=== PATIENT | female | born 1930 | race Caucasian/White ===

== ENCOUNTER 2017-03-21 14:19 | Inpatient (IN) | payer OTHER, MEDICARE ==
[~2017-03-21] VITALS: Ht 147.3 cm; Wt 63.8 kg
[2017-03-21 15:58] LABS: BASO % 0.8 %; BASO ABS # 0.05 K/uL (0-0.2); COMPLETE YES; EOS % 1.4 %; HEMATOCRIT 44.1 % (37-47); IG% 0.3 %; LYMPH ABS # 1.84 K/uL (1.2-3.4); MEAN CELL VOLUME 88.4 fL (80-100); MEAN CORPUSCULAR HEMOGLOBIN 29.5 pg (25-34); MEAN CORPUSCULAR HGB CONC 33.3 g/dl (32-36); MONO % 7.4 %; NEUT % 62.1 %; PLATELET COUNT 214 K/uL (130-400); RED BLOOD COUNT 4.99 M/uL (4.2-5.4); WHITE BLOOD COUNT 6.58 K/uL (4.8-10.8)
[2017-03-21 16:11] LABS: PARTIAL THROMBOPLASTIN RATIO 1.1; PROTHROMBIN TIME (PATIENT) 10.7 SECONDS (9.0-12.0)
[2017-03-21] MEDS ORDERED: CLON0.5T3 PO (16:13)
[2017-03-21] MEDS ORDERED: TRAM-10 PO (16:13)
[2017-03-21] MEDS ORDERED: PRLSR20 PO (16:13)
[2017-03-21] MEDS ORDERED: SERT50TA PO (16:13)
[2017-03-21] MEDS ORDERED: LISI-725 PO (16:13)
--- NOTE | 2017-03-21 16:15 | DIAGNOSTIC IMAGING REPORT ---
CT SCAN OF THE BRAIN WITHOUT IV CONTRAST CLINICAL HISTORY: Strokelike symptoms. COMPARISON STUDY: No priors. TECHNIQUE: Unenhanced axial CT scan of the brain is performed from the vertex to the skull base. A dose lowering technique was utilized adhering to the principles of ALARA. CT DOSE: 623.48 mGy.cm FINDINGS: Brain parenchyma: There are age-related involutional changes noting moderate subcortical and periventricular microangiopathic change. There is no hemorrhage, mass effect, or evidence of acute territorial ischemia by CT criteria. Duarte-white matter is preserved. No extra-axial fluid collection is seen. Ventricles, sulci, cisterns: Prominent secondary to involutional change. Intracranial vasculature: There is atherosclerotic calcification of the cavernous carotid and vertebral arteries. Calvarium: Unremarkable. Sinuses and mastoids: The visualized paranasal sinuses are clear. The mastoid air cells are well pneumatized. Orbits: The bony orbits are grossly intact. There are bilateral ocular lens implants. IMPRESSION: There is no hemorrhage, mass effect, or evidence of acute territorial ischemia by CT criteria. Electronically signed by: Alejandro Dejesus M.D. 03/21/2017 4:14 PM Dictated Date/Time: 03/21/2017 4:12 PM
[2017-03-21 16:17] LABS: BLOOD UREA NITROGEN 16 mg/dl (7-18); BUN/CREATININE RATIO 19.6 (10-20); CALCIUM 9.4 mg/dl (8.5-10.1); CARBON DIOXIDE 30 mmol/L (21-32); CHLORIDE 103 mmol/L (98-107); CREATININE 0.83 mg/dl (0.60-1.20); GLUCOSE 98 mg/dl (70-99); POTASSIUM 3.6 mmol/L (3.5-5.1); SODIUM 140 mmol/L (136-145)
[2017-03-21] MEDS ORDERED: ASPIRIN 324 MG CHEW PO STA (16:30)
[2017-03-21] MEDS: SODIUM CHLORIDE 0.9% 1000ML 1,000 ML IV SCH (16:45)
[2017-03-21] MEDS ORDERED: POLYETHYLENE (MIRALAX) 17 GM PACK PO PRN (17:30)
[2017-03-21] MEDS ORDERED: MAGNESIUM HYDROXIDE SUSP 30 ML UDC PO PRN (17:30)
[2017-03-21] MEDS ORDERED: ONDANSETRON INJ 2 MG/ML 2 ML VIAL IV PRN (17:30)
[2017-03-21] MEDS ORDERED: PHARMACIST DISCHARGE MED REC CONSULT PRN (17:30)
[2017-03-21] MEDS ORDERED: ALUMINUM/MAGNESIUM/SIMETH (MAALOX MAX) 30 ML UDC PO PRN (17:30)
[2017-03-21] MEDS ORDERED: ACETAMINOPHEN 325 MG TAB PO PRN (17:30)
[2017-03-21] MEDS ORDERED: CLONAZEPAM 0.5 MG TAB PO PRN (17:45)
[2017-03-21] MEDS ORDERED: TRAMADOL HCL 50 MG TAB PO PRN (17:45)
[2017-03-21] MEDS ORDERED: OPTIRAY 320 IV PRN (17:45)
--- NOTE | 2017-03-21 18:09 | History and Physical ---
History & Physical Date & Time of Service: Mar 21, 2017 at 17:47 Chief Complaint: Retinal Ocelation Primary Care Physician: Patricia Kam D.O. History of Present Illness Source: patient, family (son, Grupo) This is a pleasant 87 year old female with a past history of HTN, HLD, Depression/Anxiety, GERD and OA, who presents with sudden onset visual loss. She notes that 2 days ago, she was sitting in the chair watching TV, when suddenly she lost vision in her right year. The vision loss was confined to the inner middle half of her visual field in the right. She denies any associated headache, dysphasia, asphasia, dysphagia, tinnitus, hearing loss, vertigo, dizziness, peripheral weakness or paresthesia or balances issues. She notes that there was no pain to the eye, nor difficulty with eye movements. Did did not have any tenderness to the temples or jaw claudication. She also denies any flashes or floaters or light. She notes that 2 days prior to that, she was driving and noticed sudden onset double vision. She cannot state which eye it was in because it went away within a few seconds. She denies any chest pain, palpitation, SOB, coughing or wheezing. She has no lower extremity edema. She has been doing well with regards to intake and appetite. She denies any voiding issues. She denies fevers, chills, sweats. She has no prior history of stroke or coronary artery disease. She was able to go see the forensic photographer this morning in [place]. They had noted to her a concern for central retinal artery occlusion and recommending going to the ER for further evaluation. In the ER, vitals were normal and labs were all within normal limits. A non-contrast CT was negative. Past Medical/Surgical History HTN HLD Osteoarthritis GERD Axiety Depression Surgery - Cholecystectomy - Bilateral Knee Arthroplasty - Hernia repair - Bilateral cataract repair - Right ankle fracture with metal plating - Colon Ca with colectomy 5 years ago Social History Smoking Status: Never Smoker Smokeless Tobacco Use: No Alcohol Use: occasionally Drug Use: none Marital Status: Housing status: lives with family (son) Occupational Status: retired Allergies Coded Allergies: No Known Allergies (Unverified , 03/21/17) Home Medications Scheduled Lisinopril (Zestril), 20 MG PO DAILY Omeprazole (Prilosec), 20 MG PO BID Sertraline (Zoloft), 50 MG PO DAILY Scheduled PRN Clonazepam (Klonopin), 0.5 MG PO DAILY PRN for Anxiety Tramadol (Ultram), 50 MG PO Q6H PRN for Pain Review of Systems Constitutional: No fever, No chills, No sweats Eyes: No worsening of vision, No eye pain, No redness, No discharge, No diplopia ENT: No hearing loss, No unusual epistaxis, No nasal symptoms, No sore throat, No tinnitus Respiratory: No cough, No wheezing, No shortness of breath Cardiovascular: No chest pain, No orthopnea, No palpitations Abdomen: No pain, No nausea, No vomiting Musculoskeletal: No joint pain, No muscle pain, No swelling Genitourinary - Female: No dysuria, No urinary frequency Neurologic: No memory loss, No paralysis, No weakness, No numbness/tingling, No vertigo Psychiatric: No depression symptoms, No anxiety Endocrine: No fatigue Hematologic / Lymphatic: No clotting problems, No swollen lymph nodes, No night sweats Integumentary: No rash, No itch, No new/changing skin lesions Physical Exam Vital Signs Date Time Temp Pulse Resp B/P (MAP) Pulse Ox O2 Delivery O2 Flow Rate FiO2 03/21/17 16:57 78 18 155/106 98 Room Air 03/21/17 15:40 85 03/21/17 15:34 98 Room Air 03/21/17 14:22 36.8 88 18 149/81 97 Room Air General Appearance: WD/WN, no apparent distress Head: normocephalic, atraumatic Eyes: normal inspection, EOMI, + pertinent finding (visual field testing reveals deficit temporal retina of right eye (unable to see objects in left visual field with right eye)) ENT: normal ENT inspection, hearing grossly normal, pharynx normal Neck: supple, no adenopathy, no JVD Respiratory/Chest: lungs clear, no respiratory distress Cardiovascular: regular rate, rhythm, no gallop, no murmur Abdomen/GI: normal bowel sounds, non tender, soft Back: normal inspection, no CVA tenderness Extremities/Musculoskelatal: no calf tenderness, no pedal edema Neurologic/Psych: operations research scientist II-XII nml as tested, no motor/sensory deficits, alert, normal mood/affect, oriented x 3 Skin: normal color, warm/dry, no rash Lymphatic: no adenopathy Diagnostics Laboratory Results Results Past 24 Hours Test 03/21/17 15:45 Range/Units White Blood Count 6.58 4.8-10.8 K/uL Red Blood Count 4.99 4.2-5.4 M/uL Hemoglobin 14.7 12.0-16.0 g/dL Hematocrit 44.1 37-47 % Mean Corpuscular Volume 88.4 80-100 fL Mean Corpuscular Hemoglobin 29.5 25-34 pg Mean Corpuscular Hemoglobin Concent 33.3 32-36 g/dl Platelet Count 214 130-400 K/uL Mean Platelet Volume 10.0 7.4-10.4 fL Neutrophils (%) (Auto) 62.1 % Lymphocytes (%) (Auto) 28.0 % Monocytes (%) (Auto) 7.4 % Eosinophils (%) (Auto) 1.4 % Basophils (%) (Auto) 0.8 % Neutrophils # (Auto) 4.09 1.4-6.5 K/uL Lymphocytes # (Auto) 1.84 1.2-3.4 K/uL Monocytes # (Auto) 0.49 0.11-0.59 K/uL Eosinophils # (Auto) 0.09 0-0.5 K/uL Basophils # (Auto) 0.05 0-0.2 K/uL RDW Standard Deviation 44.2 36.4-46.3 fL RDW Coefficient of Variation 13.6 11.5-14.5 % Immature Granulocyte % (Auto) 0.3 % Immature Granulocyte # (Auto) 0.02 0.00-0.02 K/uL Prothrombin Time 10.7 9.0-12.0 SECONDS Prothromb Time International Ratio 1.0 0.9-1.1 Activated Partial Thromboplast Time 27.3 21.0-31.0 SECONDS Partial Thromboplastin Ratio 1.1 Sodium Level 140 136-145 mmol/L Potassium Level 3.6 3.5-5.1 mmol/L Chloride Level 103 98-107 mmol/L Carbon Dioxide Level 30 21-32 mmol/L Anion Gap 7.0 3-11 mmol/L Blood Urea Nitrogen 16 7-18 mg/dl Creatinine 0.83 0.60-1.20 mg/dl Est Creatinine Clear Calc Drug Dose 38.7 ml/min Estimated GFR () 74.0 Estimated GFR (Non- 63.9 BUN/Creatinine Ratio 19.6 10-20 Random Glucose 98 70-99 mg/dl Calcium Level 9.4 8.5-10.1 mg/dl Troponin I < 0.015 0-0.045 ng/ml Diagnostic Radiology CT SCAN OF THE BRAIN WITHOUT IV CONTRAST CLINICAL HISTORY: Strokelike symptoms. COMPARISON STUDY: No priors. TECHNIQUE: Unenhanced axial CT scan of the brain is performed from the vertex to the skull base. A dose lowering technique was utilized adhering to the principles of ALARA. CT DOSE: 623.48 mGy.cm FINDINGS: Brain parenchyma: There are age-related involutional changes noting moderate subcortical and periventricular microangiopathic change. There is no hemorrhage, mass effect, or evidence of acute territorial ischemia by CT criteria. Duarte-white matter is preserved. No extra-axial fluid collection is seen. Ventricles, sulci, cisterns: Prominent secondary to involutional change. Intracranial vasculature: There is atherosclerotic calcification of the cavernous carotid and vertebral arteries. Calvarium: Unremarkable. Sinuses and mastoids: The visualized paranasal sinuses are clear. The mastoid air cells are well pneumatized. Orbits: The bony orbits are grossly intact. There are bilateral ocular lens implants. IMPRESSION: There is no hemorrhage, mass effect, or evidence of acute territorial ischemia by CT criteria. Electronically signed by: Alejandro Dejesus M.D. 03/21/2017 4:14 PM Dictated Date/Time: 03/21/2017 4:12 PM EKG NSR Normal EKG Impression Assessment and Plan 87 year old female with sudden onset right hemianopia in the temporal retina. Per evaluation from forensic photographer this morning, they noted right central retinal artery occlusion Otherwise, neurological examination is completely normal. She does have other risk factors for ischemic vessel disease including HTN and HLD. 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 - Clinical exam does not heighten concern for inflammatory process (ex: GCA), therefore, will hold off on checking any inflammatory markers - CT brain negative - MRI contra-indicated due to metal plating in ankle - Will pursue additional CVA work-up Carotid ultrasound Echocardiogram; telemetry monitoring for arrhythmia MRA Head and Neck - Risk factor screening: Check HbA1c; will hold on lipid panel as clinical presentation dictates treatment with high-intensity statin regimen regardless of lipids - Consult Neurology - Consult Ophthalmology - Start ASA 81 mg daily - Statin increased to high-intensity regimen, Atorvastatin 40 mg Hypertension - Continue Lisinopril Hyperlipidemia - Increase intensity to Atorvastatin 40 mg Anxiety/Depression - Continue Fluoxetine - Continue Clonazepam DVT Prophylaxis - SCD Knee, TARA Hose - Lovenox 40 mg s.c. daily Code Status - Level I Full Code Disposition - Telemetry - OT and PT evaluations I agree with resident assessment and plan and have seen and examined pt myself Pt admitted with right visual loss (hemianopsia) and suspected to have central retinal artery occlusion for forensic photographer Will consult neuro at this time in addition to opthalmology No other neuro deficits on exam Cont CVA workup including CTA head/neck and ECHO Cont on ASA at this time Pt reports mild improvement in right vision almanza Level of Care Telemetry Resuscitation Status FULL RESUSCITATION VTE Prophylaxis VTE Risk Assessment Done? Y/N: Yes Risk Level: Moderate Given or contraindicated: Enoxaparin (Lovenox)SQ
--- NOTE | 2017-03-21 18:36 | DIAGNOSTIC IMAGING REPORT ---
CT ANGIOGRAM OF THE BRAIN; CT ANGIOGRAM OF THE NECK CLINICAL HISTORY: Strokelike symptoms. Retinal occlusion. COMPARISON STUDY: Unenhanced CT of the brain dated 03/21/2017. TECHNIQUE: Following the IV administration of 120 of Optiray 320, CT angiogram of the head and neck was performed from the aortic arch to the vertex. Images are reviewed in the axial, sagittal, and coronal planes. 3-D MIPS images are created and assessed. IV contrast was administered without complication. All measurements were calculated based on NASCET criteria. A dose lowering technique was utilized adhering to the principles of ALARA. CT DOSE: 420.43 mGy.cm FINDINGS: Brain parenchyma: There are age-related involutional changes noting mild to moderate patchy subcortical and periventricular microangiopathic disease. There is no hemorrhage, mass effect, or evidence of acute territorial ischemia by CT criteria. There is no evidence of enhancing mass lesion on these angiographic phase images. The ventricles, sulci, and cisterns are prominent secondary to involutional change. Duarte-white matter differentiation is preserved. No extra-axial fluid collection is seen. Thoracic aorta: There is atherosclerotic calcification of the thoracic aorta. Visualized portions of the thoracic aorta are normal in caliber. The aortic arch demonstrates standard 3-vessel anatomy. Right carotid arterial system: The right common carotid artery is widely patent. There is advanced atherosclerotic calcification of the carotid bulb. This causes at least 50-75% stenosis at the origin of the right internal carotid artery. The remainder of the right internal carotid artery is widely patent, as is the right external carotid artery. Left carotid arterial system: The left common carotid artery is widely patent, as are the left internal and external carotid arteries. There is evidence carotid calcification of the carotid bulb which causes less than 25% luminal narrowing. Vertebral arteries: Widely patent bilaterally. The right vertebral artery is dominant. Subclavian arteries: Widely patent bilaterally. Intracranial vasculature: There is atherosclerotic calcification of the cavernous carotid and vertebral arteries. The internal carotid arteries are patent at the skull base, as are the anterior and middle cerebral arteries bilaterally. The vertebrobasilar system and posterior cerebral arteries are widely patent. The right vertebral artery is dominant. There is no aneurysm, high-grade stenosis, or focal vessel cut off seen throughout the intracranial circulation. Jugular veins: Widely patent bilaterally. Dural sinuses: Patent. Lung apices: Partially visualized upper lobe lung parenchyma appears clear. Soft tissues: The visualized pharyngeal soft tissues are normal in appearance noting angiographic phase technique. The oropharyngeal airway appears widely patent. The salivary and thyroid glands are normal in appearance. No cervical lymphadenopathy is seen. Skeletal structures: The skeletal structures are osteopenic. The calvarium appears intact. Multilevel cervical spondylosis is observed. Sinuses and mastoids: The paranasal sinuses are clear. The mastoid air cells are well pneumatized. Orbits: The bony orbits are intact. There are bilateral ocular lens implants. IMPRESSION: 1. There is no evidence of hemorrhage, mass effect, or acute territorial ischemia by CT criteria. 2. Unremarkable CT angiogram of the brain. 3. There is advanced and complex atherosclerotic plaque seen in the right carotid bulb. This causes 50-75% stenosis at the origin of the right internal carotid artery. 4. The remainder of the right internal carotid artery is widely patent. 5. No hemodynamically significant stenosis is seen in the left carotid arterial system. Electronically signed by: Alejandro Dejesus M.D. 03/21/2017 6:34 PM Dictated Date/Time: 03/21/2017 6:19 PM
--- NOTE | 2017-03-21 19:25 | DIAGNOSTIC IMAGING REPORT ---
ULTRASOUND OF THE CAROTID ARTERIES CLINICAL HISTORY: Carotid artery atherosclerosis. COMPARISON STUDY: CT angiogram of the neck performed the same day 03/21/2017. TECHNIQUE: Real-time, grayscale, and color Doppler sonography of the carotid arteries is performed. Images are reviewed in the transverse and longitudinal planes. FINDINGS: Blood pressure in the right arm measures 158/81 and blood pressure in the left arm measures 163/83. The carotid arteries are patent bilaterally and demonstrate antegrade flow. There is [id number] atherosclerotic plaque seen in the carotid bulbs, right greater than left. Normal doppler arterial waveforms are seen throughout. Velocity measurements are listed below. Common carotid peak systolic velocity (cm/sec): RIGHT: 64 LEFT: 59 ICA proximal peak systolic velocity (cm/sec): RIGHT: 46 LEFT: 61 ICA mid peak systolic velocity (cm/sec): RIGHT: 45 LEFT: 56 ICA distal peak systolic velocity (cm/sec): RIGHT: 59 LEFT: 50 ICA/CC peak systolic ratio: RIGHT: 0.9 LEFT: 1.0 Antegrade flow was shown in the vertebral arteries. The external carotid arteries are patent. IMPRESSION: 1. There is no sonographic evidence of hemodynamically significant stenosis in the right or left carotid arterial system by velocity criteria. 2. Antegrade flow is shown in the vertebral arteries. Electronically signed by: Alejandro Dejesus M.D. 03/21/2017 7:23 PM Dictated Date/Time: 03/21/2017 7:21 PM
--- NOTE | 2017-03-21 19:35 | EMERGENCY ROOM VISIT NOTE ---
History Report prepared by Ekta: Rishi Aranda Under the Supervision of: Dr. Kishor Busby M.D. First contact with patient: 14:42 Chief Complaint: EYE ASSESSMENT Stated Complaint: RETINAL OCELATION History of Present Illness The patient is a 87 year old female who presents to the Emergency Room with complaints of trouble with her vision in her right eye that began two nights ago. At this time, the patient was sitting watching television. Suddenly, she began to see "spots" in her vision. She tested her right eye by placing her hand over her left eye and noticed that she can only distinguish light. She cannot see anything else out of her right eye. She is not having any trouble with her left eye. Today, she saw an Supervisor Garage named Dr. Dozier at [facility] in [place]. 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 They referred her to her PCP and scheduled her for an appointment with an Door Patcher. She then saw a Physician Top Coater in her PCP's office who discussed her case with a Physician. They referred her to the ER for further management. She is experiencing trouble walking because of her lack of vision in her right eye but otherwise denies ataxia. She denies any headaches, feelings of being off balance, numbness, or weakness. She denies any history of strokes, diabetes, or heart disease. She is not on any blood thinners or Aspirin. She has a past history of hypertension. Source of History: patient Onset: two nights ago Position: eye (right) Symptom Intensity: moderate Quality: other (Vision trouble) Timing: constant Associated Symptoms: No headache, No weakness, No numbness Note: She is having trouble walking. She denies any feelings of being off balance. Review of Systems See HPI for pertinent positives & negatives. A total of 10 systems reviewed and were otherwise negative. Past Medical & Surgical Medical Problems: (1) Hemianopia of right eye (2) HTN (hypertension) Family History Omitted secondary to the patient's age. Social History Smoking Status: Never Smoker Smokeless Tobacco Use: No Drug Use: none Occupation Status: retired Current/Historical Medications Scheduled Lisinopril (Zestril), 20 MG PO DAILY Omeprazole (Prilosec), 20 MG PO BID Sertraline (Zoloft), 50 MG PO DAILY Scheduled PRN Clonazepam (Klonopin), 0.5 MG PO DAILY PRN for Anxiety Tramadol (Ultram), 50 MG PO Q6H PRN for Pain Allergies Coded Allergies: No Known Allergies (Unverified , 03/21/17) Physical Exam Vital Signs Date Time Temp Pulse Resp B/P (MAP) Pulse Ox O2 Delivery O2 Flow Rate FiO2 03/21/17 19:01 79 18 148/94 98 03/21/17 16:57 78 18 155/106 98 Room Air 03/21/17 15:40 85 03/21/17 15:34 98 Room Air 03/21/17 14:22 36.8 88 18 149/81 97 Room Air Physical Exam Constitutional: Vital signs reviewed. Eyes: Pupils are both dilated. Conjunctiva are noninjected. ENT: Pharynx is clear without erythema or exudate. Mucous membranes are moist. Neck supple without meningeal signs. Respiratory: Clear to auscultation bilaterally. Breath sounds are equal bilaterally. Cardiovascular: Regular rate and rhythm. No rubs or gallops. GI: Soft, nondistended and nontender. Bowel sounds are present. Musculoskeletal: No peripheral edema. No lower extremity tenderness. Integumentary: No cyanosis. Neurological: The patient is awake and alert. Cranial nerves III-XII are intact. Only detection of light in the right eye. Motor is 5 out of 5 all extremities. Sensation is intact to light touch all extremities. Normal speech. Normal gait. No pronator drift. Psychiatric: Normal affect. Medical Decision & Procedures ER Provider Diagnostic Interpretation: Radiology results as stated below per my review and the radiologist's interpretation: CT SCAN OF THE BRAIN WITHOUT IV CONTRAST CLINICAL HISTORY: Strokelike symptoms. COMPARISON STUDY: No priors. TECHNIQUE: Unenhanced axial CT scan of the brain is performed from the vertex to the skull base. A dose lowering technique was utilized adhering to the principles of ALARA. CT DOSE: 623.48 mGy.cm FINDINGS: Brain parenchyma: There are age-related involutional changes noting moderate subcortical and periventricular microangiopathic change. There is no hemorrhage, mass effect, or evidence of acute territorial ischemia by CT criteria. Duarte-white matter is preserved. No extra-axial fluid collection is seen. Ventricles, sulci, cisterns: Prominent secondary to involutional change. Intracranial vasculature: There is atherosclerotic calcification of the cavernous carotid and vertebral arteries. Calvarium: Unremarkable. Sinuses and mastoids: The visualized paranasal sinuses are clear. The mastoid air cells are well pneumatized. Orbits: The bony orbits are grossly intact. There are bilateral ocular lens implants. IMPRESSION: There is no hemorrhage, mass effect, or evidence of acute territorial ischemia by CT criteria. Electronically signed by: Alejandro Dejesus M.D. 03/21/2017 4:14 PM Dictated Date/Time: 03/21/2017 4:12 PM Laboratory Results 03/21/17 15:45 Red Blood Count 4.99, Mean Corpuscular Volume 88.4, Mean Corpuscular Hemoglobin 29.5, Mean Corpuscular Hemoglobin Concent 33.3, Mean Platelet Volume 10.0, Neutrophils (%) (Auto) 62.1, Lymphocytes (%) (Auto) 28.0, Monocytes (%) (Auto) 7.4, Eosinophils (%) (Auto) 1.4, Basophils (%) (Auto) 0.8, Neutrophils # (Auto) 4.09, Lymphocytes # (Auto) 1.84, Monocytes # (Auto) 0.49, Eosinophils # (Auto) 0.09, Basophils # (Auto) 0.05 03/21/17 15:45 Test 03/21/17 15:45 White Blood Count 6.58 K/uL (4.8-10.8) Red Blood Count 4.99 M/uL (4.2-5.4) Hemoglobin 14.7 g/dL (12.0-16.0) Hematocrit 44.1 % (37-47) Mean Corpuscular Volume 88.4 fL (80-100) Mean Corpuscular Hemoglobin 29.5 pg (25-34) Mean Corpuscular Hemoglobin Concent 33.3 g/dl (32-36) Platelet Count 214 K/uL (130-400) Mean Platelet Volume 10.0 fL (7.4-10.4) Neutrophils (%) (Auto) 62.1 % Lymphocytes (%) (Auto) 28.0 % Monocytes (%) (Auto) 7.4 % Eosinophils (%) (Auto) 1.4 % Basophils (%) (Auto) 0.8 % Neutrophils # (Auto) 4.09 K/uL (1.4-6.5) Lymphocytes # (Auto) 1.84 K/uL (1.2-3.4) Monocytes # (Auto) 0.49 K/uL (0.11-0.59) Eosinophils # (Auto) 0.09 K/uL (0-0.5) Basophils # (Auto) 0.05 K/uL (0-0.2) RDW Standard Deviation 44.2 fL (36.4-46.3) RDW Coefficient of Variation 13.6 % (11.5-14.5) Immature Granulocyte % (Auto) 0.3 % Immature Granulocyte # (Auto) 0.02 K/uL (0.00-0.02) Prothrombin Time 10.7 SECONDS (9.0-12.0) Prothromb Time International Ratio 1.0 (0.9-1.1) Activated Partial Thromboplast Time 27.3 SECONDS (21.0-31.0) Partial Thromboplastin Ratio 1.1 Anion Gap 7.0 mmol/L (3-11) Est Creatinine Clear Calc Drug Dose 38.7 ml/min Estimated GFR () 74.0 Estimated GFR (Non- 63.9 BUN/Creatinine Ratio 19.6 (10-20) Calcium Level 9.4 mg/dl (8.5-10.1) Troponin I < 0.015 ng/ml (0-0.045) Laboratory results as reviewed by me. Medications Administered Medications (Trade) Dose Ordered Sig/Faviola Route Start Time Stop Time Status Last Admin Dose Admin Sodium Chloride 1,000 ml @ 50 mls/hr Q20H IV 03/21/17 15:10 04/20/17 15:09 03/21/17 16:45 50 MLS/HR Aspirin (Aspirin Chew) 324 mg NOW STAT PO 03/21/17 16:30 03/21/17 16:31 DC 03/21/17 16:45 324 MG ECG Indication: other (Stroke Symptoms) Rate (beats per minute): 84 Rhythm: normal sinus Findings: no acute ischemic change, no ectopy ED Course 1442: The patient was evaluated in room C12B. A complete history and physical exam was performed. 1510: Ordered Sodium Chloride 1000 ml @ 50 mls/hr IV 1522: I informed the patient was her diagnoses at her [employer] was. I also discussed with her the plan for treatment. Her son is now at bedside. 1629: I discussed the patient's test results with her and her son. She will be evaluated further by a Hospitalist. 163: Ordered Aspirin 324 mg PO 163: I spoke [place]. Armijo [facility] [place]. We discussed the patient's case. He will be evaluating the patient for further management and care. Medical Decision This is an 87-year-old female who presents with central retinal artery occlusion. I did perform a limited focused review of portions of the patient's old chart on the electronic medical record. The patient has had no prior visits to this hospital. I did evaluate the patient as noted above. The patient is presenting with a central retinal artery occlusion diagnosed by the [facility]. I did call the clinic and they confirmed that their physician diagnosed her with central retinal artery occlusion. She was sent here for further workup by her PCP. She has no other neurologic symptoms. She has loss of vision in the right eye and is only able to distinguish light. IV access was established. The patient was placed on a continuous cardiac care nurse. I did order and personally review the patient's 12-lead EKG as described above. I did order and review the patient's blood work as noted in the electronic medical record. I did order a CT of the brain. I did review the images myself as well as the radiology report as described above. There is no evidence of acute intracranial abnormality. I did discuss the test results with the patient. She will be hospitalized for further CVA workup. I did discuss the case with the hospitalist and complex case manager. Medication Reconcilliation Current Medication List: was personally reviewed by me Blood Pressure Screening Patient's blood pressure: Elevated blood pressure Blood pressure disposition: Referred to PCP Consults Time Called: 1628 Consulting Physician: Dr. Patel - [facility] Returned Call: [address] Patel of [facility]. We discussed the patient and her results. The patient will be further evaluated by him. Impression Primary Impression: Central retinal artery occlusion Scribe Attestation The scribe's documentation has been prepared under my direct and personally reviewed by me in its entirety. I confirm that the note above accurately reflects all work, treatment, procedures, and medical decision making performed by me. Departure Information Dispostion Being Evaluated By Hospitalist Patient Instructions My [facility] Problem Qualifiers Primary Impression: Central retinal artery occlusion Laterality: right Qualified Codes: H34.11 - Central retinal artery occlusion , right eye
[2017-03-21 20:00] VITALS: BP 193/95; PULSE 87; TEMP 36.7; O2SAT 95; Ht 147.3 cm; Wt 63.8 kg
[2017-03-21] MEDS: PANTOprazole SOD 40 MG TAB PO SCH (20:31)
[2017-03-21] MEDS: LISINOPRIL 20 MG TAB PO SCH (20:32)
[2017-03-21] MEDS: SERTRALINE HCL 50 MG TAB PO SCH (20:32)
[2017-03-21] MEDS ORDERED: ENOXAPARIN 40 MG/0.4 ML SYR SC SCH (21:00)
[2017-03-21 21:54] VITALS: BP 134/85
[2017-03-21 23:06] VITALS: BP 107/60; PULSE 76; TEMP 36.7; O2SAT 94
[2017-03-22 03:34] VITALS: BP 110/72; PULSE 72; TEMP 36.6; O2SAT 94
[2017-03-22 06:01] LABS: BASO % 0.6 %; BASO ABS # 0.04 K/uL (0-0.2); COMPLETE YES; EOS % 2.6 %; HEMATOCRIT 41.3 % (37-47); LYMPH % 31.3 %; LYMPH ABS # 2.02 K/uL (1.2-3.4); MEAN CELL VOLUME 89.6 fL (80-100); MEAN CORPUSCULAR HEMOGLOBIN 29.7 pg (25-34); MEAN CORPUSCULAR HGB CONC 33.2 g/dl (32-36); MEAN PLATELET VOLUME 9.8 fL (7.4-10.4); MONO % 8.2 %; NEUT % 57.3 %; PLATELET COUNT 209 K/uL (130-400); RED BLOOD COUNT 4.61 M/uL (4.2-5.4); WHITE BLOOD COUNT 6.46 K/uL (4.8-10.8)
[2017-03-22 06:08] LABS: ESTIMATED AVERAGE GLUCOSE 120 mg/dl; HA1C FLAG Normal (Normal)
[2017-03-22 06:31] LABS: BUN/CREATININE RATIO 25.7 (10-20); CALCIUM 8.9 mg/dl (8.5-10.1); CREATININE 0.77 mg/dl (0.60-1.20); POTASSIUM 3.6 mmol/L (3.5-5.1)
[2017-03-22 06:34] LABS: CHOLESTEROL/HDL RATIO 5.2
[2017-03-22 07:53] VITALS: BP 130/83; PULSE 74; TEMP 36.6; O2SAT 95
[2017-03-22] MEDS: PANTOprazole SOD 40 MG TAB PO SCH (08:17)
[2017-03-22] MEDS: SERTRALINE HCL 50 MG TAB PO SCH (08:17)
[2017-03-22] MEDS: LISINOPRIL 20 MG TAB PO SCH (08:17)
[2017-03-22] MEDS ORDERED: ASPIRIN 81 MG ECTAB PO SCH (09:00)
[2017-03-22] MEDS ORDERED: ATORVASTATIN 40 MG TAB PO SCH (09:00)
--- NOTE | 2017-03-22 10:06 | Neurology Consultation ---
Neurology Consultation Date of Consultation: Mar 22, 2017. Attending Physician: Dung Patel D.O. Primary Care Physician: Patricia Kam D.O. Reason for Consultation: Consultation for acute visual loss History of Present Illness Source: patient, hospital records This is a 87-year-old right-handed female who presents with acute right eye visual loss. Occurred approximately 3 nights ago. It occurred suddenly while watching TV. Denies any pain in association. She reports that she can still see a little bit out of her nasal region of her right eye. Left eye vision is completely intact. She denies any headaches. Denies any numbness or weakness. Denies any changes with her gait or walking. Denies any changes with her speech or swallowing. Denies any changes with her cognition or memory. She has never had any TIA or strokelike events in the past. Denies any chest pain, heart palpitations, shortness of breath. She did present to her pet groomer who noted right central artery occlusion and patient was eventually sent to the emergency room for further evaluation. CTA of the head and neck were reviewed by myself and noted to have a 50-75% stenosis of the right ICA. Ultrasound of the carotids were unremarkable. Echocardiogram results are pending Total cholesterol 199, LDL 132, HDL 38, triglycerides 145, hemoglobin A1c 5.8 Patient reports that she was on a statin medication at the time of the event but denies any antiplatelets or blood thinners. Past Medical/Surgical History Medical Problems: (1) Central retinal artery occlusion Status: Acute Hypertension, dyslipidemia, depression/anxiety Patient has had a screw placed in her toe about 5 years ago. Had a plate placed in her ankle for repair fracture approximately 2 years ago. Bilateral knee replacements Family History Family history significant for mother with DE in her 70s and to also had Parkinson's. Father with diabetes Social History Patient is normally independent in her activities of daily living. Rare alcohol use. No tobacco use. Smokeless Tobacco Use: No Alcohol Use: occasionally Drug Use: none Marital Status: Occupation Status: retired Allergies Coded Allergies: No Known Allergies (Unverified , 03/21/17) Current Inpatient Medications Current Inpatient Medications Medications (Trade) Dose Ordered Sig/Faviola Route Start Time Stop Time Status Last Admin Dose Admin Sodium Chloride 1,000 ml @ 50 mls/hr Q20H IV 03/21/17 15:10 04/20/17 15:09 03/21/17 16:45 50 MLS/HR Enoxaparin Sodium (Lovenox Inj) 40 mg Q24H SC 03/21/17 21:00 04/20/17 20:59 03/21/17 21:05 40 MG Acetaminophen (Tylenol Tab) 650 mg Q4H PRN PO 03/21/17 17:30 04/20/17 17:29 Al Hydrox/Mg Hydrox/Simethicone (Maalox Max Susp) 15 ml Q4H PRN PO 03/21/17 17:30 04/20/17 17:29 Magnesium Hydroxide (Milk Of Magnesia Susp) 30 ml Q12H PRN PO 03/21/17 17:30 04/20/17 17:29 Ondansetron HCl (Zofran Inj) 4 mg Q6H PRN IV 03/21/17 17:30 04/20/17 17:29 Polyethylene (Miralax Powder Packet) 17 gm DAILY PRN PO 03/21/17 17:30 04/20/17 17:29 Atorvastatin Calcium (Lipitor Tab) 40 mg QAM PO 03/22/17 09:00 04/21/17 08:59 03/22/17 08:17 40 MG Aspirin (Ecotrin Tab) 81 mg QAM PO 03/22/17 09:00 04/21/17 08:59 03/22/17 08:18 81 MG Miscellaneous Information (Pharmacist Discharge Med Rec Consult) 1 ea UD PRN N/A 03/21/17 17:30 04/20/17 17:29 Clonazepam (Klonopin Tab) 0.5 mg DAILY PRN PO 03/21/17 17:45 04/20/17 17:44 Lisinopril (Zestril Tab) 20 mg DAILY PO 03/22/17 09:00 04/21/17 08:59 03/22/17 08:17 20 MG Sertraline HCl (Zoloft Tab) 50 mg DAILY PO 03/22/17 09:00 04/21/17 08:59 03/22/17 08:17 50 MG Tramadol HCl (Ultram Tab) 50 mg Q6H PRN PO 03/21/17 17:45 04/20/17 17:44 Pantoprazole Sodium (Protonix Tab) 40 mg BID PO 03/21/17 21:00 04/20/17 20:59 03/22/17 08:17 40 MG Ioversol (Optiray 320) 100 ml UD PRN IV 03/21/17 17:45 03/25/17 17:44 Review of Systems Complete review systems otherwise negative except for the above noted in history of present illness Physical Exam Vital Signs (Past 24 Hrs): Date Time Temp Pulse Resp B/P (MAP) Pulse Ox O2 Delivery O2 Flow Rate FiO2 03/22/17 08:00 Room Air 03/22/17 07:53 36.6 74 17 130/83 (99) 95 03/22/17 04:00 Room Air 03/22/17 03:34 36.6 72 18 110/72 (85) 94 Room Air 03/22/17 00:00 Room Air 03/21/17 23:06 36.7 76 18 107/60 (76) 94 Room Air 03/21/17 21:54 134/85 (101) 03/21/17 20:00 36.7 87 20 193/95 95 Room Air 03/21/17 19:01 79 18 148/94 98 03/21/17 16:57 78 18 155/106 98 Room Air 03/21/17 15:40 85 03/21/17 15:34 98 Room Air 03/21/17 14:22 36.8 88 18 149/81 97 Room Air Gen.: Patient is alert and sitting in bed, in no acute distress. HEENT: Normocephalic /atraumatic, no scleral icterus Heart: Regular rate and rhythm Extremities: No gross deformities or rashes noted Neurological examination: Mental status: Patient is alert and oriented x3. Attention and concentration normal for the situation. Good fund of knowledge. Able to give her own history. Speech is fluent without any dysarthria or aphasia noted Cranial nerve: Visual almanza intact in the left eye. Severely impaired visual almanza in the right eye with the exception the most nasal portion of her vision. Funduscopic examination was not well visualized. No papilledema. Pupils equally round and reactive to light. Extraocular muscles intact without nystagmus. No facial asymmetry noted. Facial sensation intact. Tongue is midline. Good palatal elevation. Good shoulder shrug bilaterally. Hearing grossly intact to voice. Strength: 5/5 both proximal and distally in all extremities. There is no arm drift. Tone is normal. Sensation: Grossly intact to light touch in all extremities. Deep tendon reflexes: +1 in bilateral biceps, brachioradialis and patellar. Coordination: Patient had good finger to nose without dysmetria Station within the bed was normal Laboratory Results Past 24 Hours: 03/22/17 05:42 Red Blood Count 4.61, Mean Corpuscular Volume 89.6, Mean Corpuscular Hemoglobin 29.7, Mean Corpuscular Hemoglobin Concent 33.2, Mean Platelet Volume 9.8, Neutrophils (%) (Auto) 57.3, Lymphocytes (%) (Auto) 31.3, Monocytes (%) (Auto) 8.2, Eosinophils (%) (Auto) 2.6, Basophils (%) (Auto) 0.6, Neutrophils # (Auto) 3.70, Lymphocytes # (Auto) 2.02, Monocytes # (Auto) 0.53, Eosinophils # (Auto) 0.17, Basophils # (Auto) 0.04 03/22/17 05:42 Test 03/21/17 15:45 03/22/17 05:42 Prothrombin Time 10.7 SECONDS (9.0-12.0) Prothromb Time International Ratio 1.0 (0.9-1.1) Activated Partial Thromboplast Time 27.3 SECONDS (21.0-31.0) Partial Thromboplastin Ratio 1.1 Estimated Average Glucose 120 mg/dl Hemoglobin A1c 5.8 % (4.5-5.6) Troponin I < 0.015 ng/ml (0-0.045) White Blood Count 6.46 K/uL (4.8-10.8) Red Blood Count 4.61 M/uL (4.2-5.4) Hemoglobin 13.7 g/dL (12.0-16.0) Hematocrit 41.3 % (37-47) Mean Corpuscular Volume 89.6 fL (80-100) Mean Corpuscular Hemoglobin 29.7 pg (25-34) Mean Corpuscular Hemoglobin Concent 33.2 g/dl (32-36) Platelet Count 209 K/uL (130-400) Mean Platelet Volume 9.8 fL (7.4-10.4) Neutrophils (%) (Auto) 57.3 % Lymphocytes (%) (Auto) 31.3 % Monocytes (%) (Auto) 8.2 % Eosinophils (%) (Auto) 2.6 % Basophils (%) (Auto) 0.6 % Neutrophils # (Auto) 3.70 K/uL (1.4-6.5) Lymphocytes # (Auto) 2.02 K/uL (1.2-3.4) Monocytes # (Auto) 0.53 K/uL (0.11-0.59) Eosinophils # (Auto) 0.17 K/uL (0-0.5) Basophils # (Auto) 0.04 K/uL (0-0.2) RDW Standard Deviation 45.2 fL (36.4-46.3) RDW Coefficient of Variation 13.8 % (11.5-14.5) Immature Granulocyte % (Auto) 0.0 % Immature Granulocyte # (Auto) 0.00 K/uL (0.00-0.02) Anion Gap 6.0 mmol/L (3-11) Est Creatinine Clear Calc Drug Dose 41.7 ml/min Estimated GFR () 81.0 Estimated GFR (Non- 69.9 BUN/Creatinine Ratio 25.7 (10-20) Calcium Level 8.9 mg/dl (8.5-10.1) Triglycerides Level 145 mg/dl (0-150) Cholesterol Level 199 mg/dl (0-200) HDL Cholesterol 38 mg/dl LDL Cholesterol, Calculated 132 mg/dl VLDL Cholesterol, Calculated 29 mg/dl Cholesterol/HDL Ratio 5.2 Imaging As noted above in history of present illness Impression This is a 87-year-old right-handed female who presents with subacute right central ophthalmic artery occlusion. No other neurological deficits noted except for right eye vision loss. 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 Known stroke risk factors include hypertension and dyslipidemia. Plan Agree with initiation of aspirin and management of statin I recommend addition of Plavix for secondary stroke prevention in the setting of right ICA stenosis. Recommend aspirin plus Plavix for 3 months, after which aspirin can be discontinued and patient can remain on Plavix monotherapy. Recommendations trying to obtain MRI of the brain to see if there is any additional cerebral strokes. Typically recent orthopedic hardware placements are not a contraindication to MRI. Follow-up echocardiogram results Recommended to the patient no driving due to visual loss. Recommend that she follow up with ophthalmology as an outpatient for visual field testing. Recommend yearly follow-up CTA of the neck to follow right ICA stenosis. If greater than 75-85%, may need referral to vascular surgeon. Follow-up PT/OT for discharge planning. Blood pressure recommendations while in hospital 175/95-150/80 Avoid hypotension and dehydration Stroke risk factor modifications and recommendations: Blood pressure recommendations for the first month post hospital discharge 150/ 90-130/80, and after that blood pressure recommendations 130/80-110/70 Total cholesterol goal 100- 200 and LDL goal less than 100 Hemoglobin A1c goal less than 7 (at goal) Encourage cardiovascular exercise at least 3 times a week for 30 minutes. Follow-up in neurology clinic in 1 month for post stroke hospital follow-up. If there is any questions or concerns, feel free to call/page me.
--- NOTE | 2017-03-22 10:35 | ECHOCARDIOGRAM REPORT ---
*NOTICE TO RECEIVING CONSTITUTION PARTY AGENCY This information is strictly Confidential and protected under [place] law. [place] law prohibits you from making any further disclosure of this information unless further disclosure is expressly permitted by the written consent of the person to whom it pertains or is authorized by law. A general authorization for the release of medical or other information is not sufficient for this purpose. Hospital accepts no responsibility if the information is made available to any other person, INCLUDING THE PATIENT. Interpretation Summary * Name: ZACHARY CORDOVA Study Date: 03/22/2017 06:37 AM * Patient Location: [facility]\S\N284\S\1 HR: 82 * : 1930 (M/d/yyyy) Gender: Female Height: 60 in * Age: 87 yrs Ethnicity: [place] Weight: 142 lb * Ordering Physician: Efra Kohli * Referring Physician: Self, Referred * Performed By: Farzana Love RCS * * Reason For Study: Cerebral Ischemia/Emoblus * BSA: 1.6 m2 * -- Conclusions -- * Left ventricular systolic function is normal. * No regional wall motion abnormalities noted. * Ejection Fraction = 65-70%. * There is mild concentric left ventricular hypertrophy. * No atrial septal defect. Procedure Details * A saline contrast injection was performed to assess for cardiac shunting. * The injection was performed through an intravenous line in the left arm. * The attending nurse who injected the saline contrast was EDDIE, JOSE ELIAS. * A total of 9 cc of agitated saline was given. Left Ventricle * The left ventricle is normal in size. * There is mild concentric left ventricular hypertrophy. * Ejection Fraction = 65-70%. * Left ventricular systolic function is normal. * No regional wall motion abnormalities noted. Right Ventricle * The right ventricle is grossly normal size. * The right ventricular systolic function is normal as assessed by tricuspid annular plane systolic excursion (TAPSE) (normal >1.5 cm). Atria * The left atrial size is normal. * Right atrial size is normal. * No ASD detected; PFO is not assessed. Mitral Valve * The mitral valve is grossly normal. * There is no mitral valve stenosis. * Significant mitral regurgitation is absent. Tricuspid Valve * The tricuspid valve is not well visualized, but is grossly normal. * There is no tricuspid stenosis. * There is mild tricuspid regurgitation. * Doppler findings do not suggest pulmonary hypertension. Aortic Valve * The aortic valve is not well visualized. * The aortic valve opens well. * No hemodynamically significant valvular aortic stenosis. * There is no significant aortic regurgitation. Pulmonic Valve * The pulmonary valve is not well seen, but the Doppler examination is normal without significant regurgitation or stenosis. Great Vessels * The aortic root is normal size. * The pulmonary is not well visualized. Pericardium/Pleural * There is no pericardial effusion. Great Vessels * Normal inferior vena cava size and collapsability with sniff indicates a normal right atrial pressure of 3 mmHg Left Ventricular Diastolic Function * Grade I diastolic dysfunction, (abnormal relaxation pattern). MMode 2D Measurements and Calculations IVSd 0.73 cm LVIDd 4.7 cm LVIDs 2.7 cm LVPWd 1.0 cm IVS/LVPW 0.71 FS 42.7 % EDV(Teich) 102.1 ml ESV(Teich) 26.8 ml EF(Teich) 73.8 % EDV(cubed) 103.4 ml ESV(cubed) 19.5 ml EF(cubed) 81.2 % LV mass(C)d 138.4 grams LV mass(C)dI 85.8 grams/m\S\2 SV(Teich) 75.3 ml SI(Teich) 46.7 ml/m\S\2 SV(cubed) 84.0 ml SI(cubed) 52.0 ml/m\S\2 Ao root diam 2.7 cm Ao root area 5.8 cm\S\2 LVOT diam 2.0 cm LVOT area 3.0 cm\S\2 LVOT area(traced) 3.1 cm\S\2 LVAd ap4 21.6 cm\S\2 LVLd ap4 7.0 cm EDV(MOD-sp4) 55.4 ml LVAs ap4 10.4 cm\S\2 LVLs ap4 5.4 cm ESV(MOD-sp4) 17.1 ml EF(MOD-sp4) 69.1 % LVAd ap2 18.2 cm\S\2 LVLd ap2 6.2 cm EDV(MOD-sp2) 46.4 ml LVAs ap2 9.2 cm\S\2 LVLs ap2 4.8 cm ESV(MOD-sp2) 15.8 ml EF(MOD-sp2) 65.9 % SV(MOD-sp4) 38.3 ml SI(MOD-sp4) 23.7 ml/m\S\2 SV(MOD-sp2) 30.6 ml SI(MOD-sp2) 19.0 ml/m\S\2 Doppler Measurements and Calculations MV E max tracy 46.1 cm/sec MV A max tracy 111.1 cm/sec MV E/A 0.41 MV dec time 0.15 sec Ao V2 max 120.8 cm/sec Ao max PG 5.8 mmHg Ao max PG (full) 2.7 mmHg JUANPABLO(V,A) 2.2 cm\S\2 JUANPABLO(V,D) 2.2 cm\S\2 LV V1 max PG 3.2 mmHg LV V1 max 88.8 cm/sec TR max tracy 245.4 cm/sec
[2017-03-22 11:00] VITALS: BP 120/73; PULSE 83; TEMP 36.6; O2SAT 94
[2017-03-22] MEDS: SODIUM CHLORIDE 0.9% 1000ML 1,000 ML IV SCH (11:10)
[2017-03-22] MEDS ORDERED: LPT/40 PO (13:10)
[2017-03-22] MEDS ORDERED: CLOP1TAB5 PO (13:10)
[2017-03-22] MEDS ORDERED: ASPI81CH2 PO (13:10)
--- NOTE | 2017-03-22 14:11 | Family Medicine Progress Note ---
Progress Note Date of Service Mar 22, 2017. Subjective Pt evaluation today including: conversation w/ patient, physical exam, chart review, lab review Pain: None PO Intake: No difficulty Voiding: no voiding problems, no incontinence No complains overnight Doing well Visual deficit persists; no worsening overnight Nursing voiced no concerns at this time. Additional Comments: A 10 point review of systems was negative unless stated above. Medications Current Inpatient Medications Medications (Trade) Dose Ordered Sig/Faviola Route Start Time Stop Time Status Last Admin Dose Admin Sodium Chloride 1,000 ml @ 50 mls/hr Q20H IV 03/21/17 15:10 04/20/17 15:09 03/21/17 16:45 50 MLS/HR Enoxaparin Sodium (Lovenox Inj) 40 mg Q24H SC 03/21/17 21:00 04/20/17 20:59 03/21/17 21:05 40 MG Acetaminophen (Tylenol Tab) 650 mg Q4H PRN PO 03/21/17 17:30 04/20/17 17:29 Al Hydrox/Mg Hydrox/Simethicone (Maalox Max Susp) 15 ml Q4H PRN PO 03/21/17 17:30 04/20/17 17:29 Magnesium Hydroxide (Milk Of Magnesia Susp) 30 ml Q12H PRN PO 03/21/17 17:30 04/20/17 17:29 Ondansetron HCl (Zofran Inj) 4 mg Q6H PRN IV 03/21/17 17:30 04/20/17 17:29 Polyethylene (Miralax Powder Packet) 17 gm DAILY PRN PO 03/21/17 17:30 04/20/17 17:29 Atorvastatin Calcium (Lipitor Tab) 40 mg QAM PO 03/22/17 09:00 04/21/17 08:59 03/22/17 08:17 40 MG Aspirin (Ecotrin Tab) 81 mg QAM PO 03/22/17 09:00 04/21/17 08:59 03/22/17 08:18 81 MG Miscellaneous Information (Pharmacist Discharge Med Rec Consult) 1 ea UD PRN N/A 03/21/17 17:30 04/20/17 17:29 Clonazepam (Klonopin Tab) 0.5 mg DAILY PRN PO 03/21/17 17:45 10/18/17 17:44 Lisinopril (Zestril Tab) 20 mg DAILY PO 03/22/17 09:00 04/21/17 08:59 03/22/17 08:17 20 MG Sertraline HCl (Zoloft Tab) 50 mg DAILY PO 03/22/17 09:00 04/21/17 08:59 03/22/17 08:17 50 MG Tramadol HCl (Ultram Tab) 50 mg Q6H PRN PO 03/21/17 17:45 04/20/17 17:44 Pantoprazole Sodium (Protonix Tab) 40 mg BID PO 03/21/17 21:00 04/20/17 20:59 03/22/17 08:17 40 MG Ioversol (Optiray 320) 100 ml UD PRN IV 03/21/17 17:45 03/25/17 17:44 Objective Vital Signs Date Time Temp Pulse Resp B/P (MAP) Pulse Ox O2 Delivery O2 Flow Rate FiO2 03/22/17 12:00 Room Air 03/22/17 08:00 Room Air 03/22/17 07:53 36.6 74 17 130/83 (99) 95 03/22/17 04:00 Room Air 03/22/17 03:34 36.6 72 18 110/72 (85) 94 Room Air 03/22/17 00:00 Room Air 03/21/17 23:06 36.7 76 18 107/60 (76) 94 Room Air 03/21/17 21:54 134/85 (101) 03/21/17 20:00 36.7 87 20 193/95 95 Room Air 03/21/17 19:01 79 18 148/94 98 03/21/17 16:57 78 18 155/106 98 Room Air 03/21/17 15:40 85 03/21/17 15:34 98 Room Air 03/21/17 14:22 36.8 88 18 149/81 97 Room Air Physical Exam General Appearance: WD/WN, no apparent distress Eyes: normal inspection, EOMI, + pertinent finding (right nasal hemianopia) ENT: normal ENT inspection, hearing grossly normal, pharynx normal Neck: supple, no adenopathy, no JVD Respiratory/Chest: lungs clear, no respiratory distress Cardiovascular: regular rate, rhythm, no gallop, no murmur Abdomen: normal bowel sounds, non tender, soft Extremities: non-tender, no pedal edema Neurologic/Psychiatric: fixed route operator II-XII nml as tested, alert, normal mood/affect, oriented x 3 Skin: normal color, warm/dry, no rash Lymphatic: no adenopathy Laboratory Results Last 24 Hours Test 03/21/17 15:45 03/22/17 05:42 White Blood Count 6.58 K/uL 6.46 K/uL Red Blood Count 4.99 M/uL 4.61 M/uL Hemoglobin 14.7 g/dL 13.7 g/dL Hematocrit 44.1 % 41.3 % Mean Corpuscular Volume 88.4 fL 89.6 fL Mean Corpuscular Hemoglobin 29.5 pg 29.7 pg Mean Corpuscular Hemoglobin Concent 33.3 g/dl 33.2 g/dl Platelet Count 214 K/uL 209 K/uL Mean Platelet Volume 10.0 fL 9.8 fL Neutrophils (%) (Auto) 62.1 % 57.3 % Lymphocytes (%) (Auto) 28.0 % 31.3 % Monocytes (%) (Auto) 7.4 % 8.2 % Eosinophils (%) (Auto) 1.4 % 2.6 % Basophils (%) (Auto) 0.8 % 0.6 % Neutrophils # (Auto) 4.09 K/uL 3.70 K/uL Lymphocytes # (Auto) 1.84 K/uL 2.02 K/uL Monocytes # (Auto) 0.49 K/uL 0.53 K/uL Eosinophils # (Auto) 0.09 K/uL 0.17 K/uL Basophils # (Auto) 0.05 K/uL 0.04 K/uL RDW Standard Deviation 44.2 fL 45.2 fL RDW Coefficient of Variation 13.6 % 13.8 % Immature Granulocyte % (Auto) 0.3 % 0.0 % Immature Granulocyte # (Auto) 0.02 K/uL 0.00 K/uL Prothrombin Time 10.7 SECONDS Prothromb Time International Ratio 1.0 Activated Partial Thromboplast Time 27.3 SECONDS Partial Thromboplastin Ratio 1.1 Sodium Level 140 mmol/L 140 mmol/L Potassium Level 3.6 mmol/L 3.6 mmol/L Chloride Level 103 mmol/L 105 mmol/L Carbon Dioxide Level 30 mmol/L 29 mmol/L Anion Gap 7.0 mmol/L 6.0 mmol/L Blood Urea Nitrogen 16 mg/dl 20 mg/dl Creatinine 0.83 mg/dl 0.77 mg/dl Est Creatinine Clear Calc Drug Dose 38.7 ml/min 41.7 ml/min Estimated GFR () 74.0 81.0 Estimated GFR (Non- 63.9 69.9 BUN/Creatinine Ratio 19.6 25.7 Random Glucose 98 mg/dl 90 mg/dl Estimated Average Glucose 120 mg/dl Hemoglobin A1c 5.8 % Calcium Level 9.4 mg/dl 8.9 mg/dl Troponin I < 0.015 ng/ml Triglycerides Level 145 mg/dl Cholesterol Level 199 mg/dl HDL Cholesterol 38 mg/dl LDL Cholesterol, Calculated 132 mg/dl VLDL Cholesterol, Calculated 29 mg/dl Cholesterol/HDL Ratio 5.2 Assessment and Plan 87 year old female with sudden onset right hemianopia in the temporal retina. Admitted for CVA work-up Neurological status is intact. Visual deficit is stable. She does have other risk factors for ischemic vessel disease including HTN and HLD. 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; no indication for vascular intervention at this time - Orthopedic hardware apparently no contra-indication for MRI so will aim to have MRI combo done today - Carotid US normal - Echocardiogram grossly normal - Secondary Prevention ASA 81 mg daily + Plavix 75 mg daily x 3 months, then will convert to Plavix monotherapy, per neurology recommendations Continue home Lisinopril 20 mg; Appreciate BP recommendations per neurology Atorvastatin 40 mg HbA1c < 6.5; no indication for diabetic management - Neurology recommendations appreciated Will arrange for 1 month follow-up - Ophthalmology can evaluate patient on outpatient basis; will help set up appointment Hypertension - BP goal while in hospital ,150-170 systolic, per neurology - Will hold Lisinopril at this time - On D/C For 1 month post-DC; goal BP 130-150 systolic > 1 month post DC; goal BP 110-130 systolic Hyperlipidemia - Increase intensity to Atorvastatin 40 mg D/C home Simvastatin 20 mg Anxiety/Depression - Continue Fluoxetine - Continue Clonazepam DVT Prophylaxis - SCD Knee, TARA Hose - Lovenox 40 mg s.c. daily Code Status - Level I Full Code Disposition - Telemetry - PT and OT evaluations completed without concern for return home - Remains admitted for MRI imaging
[2017-03-22 15:33] VITALS: BP 167/92; PULSE 90; TEMP 36.3; O2SAT 96
[2017-03-22] MEDS ORDERED: NURSING VERBAL MED ORDER ONE (16:00)
--- NOTE | 2017-03-22 16:27 | DIAGNOSTIC IMAGING REPORT ---
MRI OF THE BRAIN COMBO CLINICAL HISTORY: Right-sided hemianopsia. Clinical concern for stroke. COMPARISON STUDY: CT of the brain dated 03/21/2017. TECHNIQUE: MRI of the brain was performed utilizing various T1 and T2-weighted sequences in the axial, sagittal, and coronal planes. Contrast-enhanced sequences were acquired following the administration of 6.3 cc of Gadavist. FINDINGS: Brain parenchyma: There are age-related involutional changes noting mild to moderate patchy subcortical and periventricular microangiopathic disease. There is no hemorrhage or mass effect. There is no restricted diffusion to suggest acute ischemia. No enhancing mass lesion is identified on the postcontrast images. Duarte-white matter differentiation is preserved. No extra-axial fluid collection is seen. The cerebellar tonsils are normal in configuration. Ventricles, sulci, and cisterns: Prominent secondary to involutional change. Pituitary and sella: Partially empty sella is incidentally noted. Intracranial vasculature: Normal flow voids are maintained at the skull base. Orbits: The bony orbits are grossly intact. Orbital contents are normal in appearance noting bilateral ocular lens implants. Sinuses and mastoids: Clear. Calvarium: Unremarkable. Cervical cord: Partially visualized cervical spinal cord is normal in morphology and signal intensity. IMPRESSION: Senescent changes as above with no hemorrhage, enhancing mass, or evidence of acute ischemia. Electronically signed by: Alejandro Dejesus M.D. 03/22/2017 4:26 PM Dictated Date/Time: 03/22/2017 4:23 PM
--- NOTE | 2017-03-22 17:17 | Discharge Instructions ---
Discharge Instructions Date of Service Mar 22, 2017. Admission Reason for Admission: Hemianopia Of Right Eye Discharge Discharge Diagnosis / Problem: Right Central Retinal Artery Occlusion Discharge Goals Goal(s): Improve function, Improve disease control, Learn about illness, Therapeutic intervention Activity Recommendations Activity Limitations: resume your previous activity Lifting Limitations: gradually increase as tolerated Exercise/Sports Limitations: gradually increase as tolerated Driving or Machine Use: No driving . Instructions / Follow-Up Instructions / Follow-Up You were admitted for a central retinal artery occlusion in your right eye. This prompted you to come to our hospital for a stroke evaluation. Fortunately, your CT brain and MRI brain were negative. We did CT scan of your head and neck veins. You have some narrowing of your right internal carotid artery but we will only treat these with medications. Our neurologist saw you provided recommendations and suggested medication adjustments to help prevent this from occurring in the future: - Please take Aspirin and Plavix together for 3 months; after this, please stop the aspirin and continue taking the Plavix only - Please stop taking Simvastatin. Instead start Taking Atorvastatin 40 mg daily - We screened you for diabetes which was fortunately, normal so you do not need treatment for this. - Please pay attention to the following blood pressure instructions. For the next 1 month your blood pressure goal is 130/80 - 150/90 After this you blood pressure goal is 110/70 - 130/80 You can hold your Lisinopril only as needed; if will be important for you to track your blood pressure in conjunction with your PCP. You did well with physical and occupational therapy and we feel you can safely be discharged home. Because your vision is affected, you should not be driving. We will help arrange for outpatient follow-up with Neurology in 1 month and the wet machine tender in 2-4 weeks. If your symptoms fail to improve, acutely worsen, please seek medical attention immediately by either calling your primary care provider or going to your nearest emergency department. Otherwise, please see your primary care provider in 3-5 days to ensure that your symptoms continue to improve. Risk Factors for Stroke: You can reduce your chances of stroke by working with your medical provider to adopt a healthy lifestyle. Some specific ways to lower your chance of stroke are: * If you are a smoker, now is the time to stop smoking cigarettes * If you are diabetic, improve the control of your blood sugars * Avoid excessive amounts of alcohol * Control high blood pressure * Lose weight if you are overweight * Be sure to lead an active lifestyle * Eat a healthy diet low in salt, cholesterol and fat You should know about other risk factors for stroke that you are unable to control. These include: * Age 55 years or older * Male gender * Certain racial groups: , or / * Family History of Stroke, Mini stroke or Heart Attack * Sickle Cell Disease Follow Up: It is important for you to keep your follow up appointments with your medical provider. Current Hospital Diet Patient's current hospital diet: AHA Diet (Heart Healthy) Discharge Diet Recommended Diet: AHA Diet (Heart Healthy) Pending Studies Studies pending at discharge: no Laboratory Results Hemoglobin A1c Test 03/21/17 15:45 Range/Units Estimated Average Glucose 120 mg/dl Hemoglobin A1c 5.8 H 4.5-5.6 % Lipid Panel Test 03/22/17 05:42 Range/Units Triglycerides Level 145 0-150 mg/dl Cholesterol Level 199 0-200 mg/dl HDL Cholesterol 38 mg/dl Cholesterol/HDL Ratio 5.2 LDL Cholesterol, Calculated 132 mg/dl Medical Emergencies . Who to Call and When: Medical Emergencies: Call 911 immediately if you experience any of the following warning signs and symptoms of Stroke: * Sudden numbness or weakness of the face, arm or leg, especially on one side of the body * Sudden confusion, trouble speaking or understanding * Sudden trouble seeing in one or both eyes * Sudden trouble walking, dizziness, loss of balance or coordination * Sudden severe headache with no cause Do not delay calling 911 if you experience any warning signs or symptoms of a stroke. Delay in seeking medical attention may affect what treatments can be given to you. . Non-Emergent Contact Non-Emergency issues call your: Primary Care Provider . . "Provider Documentation" section prepared by Efra Kohli. . Stroke Core Measures Reason no t-PA for Stroke: Treatment not indicated Reason no antithrom by day 2: Treatment provided - N/A Reason no antithrom at D/C: Treatment provided - N/A Reason no statin at D/C: Treatment provided - N/A Reason no anticoag w/a fib: Treatment not indicated VTE Core Measure Inpt VTE Proph given/why not?: Enoxaparin (Lovenox)SQ
[2017-03-22 17:34] VITALS: BP 167/92; PULSE 90; TEMP 36.3; O2SAT 96
--- NOTE | 2017-03-22 18:59 | Discharge Summary ---
Discharge Summary Date of Service Mar 22, 2017. (Efra Kohli MD) Discharge Summary Admission Date: Mar 21, 2017 at 17:35 Discharge Date: Mar 22, 2017 Principal Diagnosis: Right Central Retinal Artery Occlusion Problems/Secondary Diagnoses: HTN HLD Procedures: [~ rep ct add3]] MRI OF THE BRAIN COMBO CLINICAL HISTORY: Right-sided hemianopsia. Clinical concern for stroke. COMPARISON STUDY: CT of the brain dated 03/21/2017. TECHNIQUE: MRI of the brain was performed utilizing various T1 and T2-weighted sequences in the axial, sagittal, and coronal planes. Contrast-enhanced sequences were acquired following the administration of 6.3 cc of Gadavist. FINDINGS: Brain parenchyma: There are age-related involutional changes noting mild to moderate patchy subcortical and periventricular microangiopathic disease. There is no hemorrhage or mass effect. There is no restricted diffusion to suggest acute ischemia. No enhancing mass lesion is identified on the postcontrast images. Duarte-white matter differentiation is preserved. No extra-axial fluid collection is seen. The cerebellar tonsils are normal in configuration. Ventricles, sulci, and cisterns: Prominent secondary to involutional change. Pituitary and sella: Partially empty sella is incidentally noted. Intracranial vasculature: Normal flow voids are maintained at the skull base. Orbits: The bony orbits are grossly intact. Orbital contents are normal in appearance noting bilateral ocular lens implants. Sinuses and mastoids: Clear. Calvarium: Unremarkable. Cervical cord: Partially visualized cervical spinal cord is normal in morphology and signal intensity. IMPRESSION: Senescent changes as above with no hemorrhage, enhancing mass, or evidence of acute ischemia. Electronically signed by: Alejandro Dejesus M.D. 03/22/2017 4:26 PM Dictated Date/Time: 03/22/2017 4:23 PM The status of this report is Signed. Draft = Not yet reviewed or approved by Radiologist. Signed = Reviewed and approved by Radiologist. [~ rep ct add3]] CT SCAN OF THE BRAIN WITHOUT IV CONTRAST CLINICAL HISTORY: Strokelike symptoms. COMPARISON STUDY: No priors. TECHNIQUE: Unenhanced axial CT scan of the brain is performed from the vertex to the skull base. A dose lowering technique was utilized adhering to the principles of ALARA. CT DOSE: 623.48 mGy.cm FINDINGS: Brain parenchyma: There are age-related involutional changes noting moderate subcortical and periventricular microangiopathic change. There is no hemorrhage, mass effect, or evidence of acute territorial ischemia by CT criteria. Duarte-white matter is preserved. No extra-axial fluid collection is seen. Ventricles, sulci, cisterns: Prominent secondary to involutional change. Intracranial vasculature: There is atherosclerotic calcification of the cavernous carotid and vertebral arteries. Calvarium: Unremarkable. Sinuses and mastoids: The visualized paranasal sinuses are clear. The mastoid air cells are well pneumatized. Orbits: The bony orbits are grossly intact. There are bilateral ocular lens implants. IMPRESSION: There is no hemorrhage, mass effect, or evidence of acute territorial ischemia by CT criteria. Electronically signed by: Alejandro Dejesus M.D. 03/21/2017 4:14 PM Dictated Date/Time: 03/21/2017 4:12 PM The status of this report is Signed. Draft = Not yet reviewed or approved by Radiologist. Signed = Reviewed and approved by Radiologist. ULTRASOUND OF THE CAROTID ARTERIES CLINICAL HISTORY: Carotid artery atherosclerosis. COMPARISON STUDY: CT angiogram of the neck performed the same day 03/21/2017. TECHNIQUE: Real-time, grayscale, and color Doppler sonography of the carotid arteries is performed. Images are reviewed in the transverse and longitudinal planes. FINDINGS: Blood pressure in the right arm measures 158/81 and blood pressure in the left arm measures 163/83. The carotid arteries are patent bilaterally and demonstrate antegrade flow. There is [id number] atherosclerotic plaque seen in the carotid bulbs, right greater than left. Normal doppler arterial waveforms are seen throughout. Velocity measurements are listed below. Common carotid peak systolic velocity (cm/sec): RIGHT: 64 LEFT: 59 ICA proximal peak systolic velocity (cm/sec): RIGHT: 46 LEFT: 61 ICA mid peak systolic velocity (cm/sec): RIGHT: 45 LEFT: 56 ICA distal peak systolic velocity (cm/sec): RIGHT: 59 LEFT: 50 ICA/CC peak systolic ratio: RIGHT: 0.9 LEFT: 1.0 Antegrade flow was shown in the vertebral arteries. The external carotid arteries are patent. IMPRESSION: 1. There is no sonographic evidence of hemodynamically significant stenosis in the right or left carotid arterial system by velocity criteria. 2. Antegrade flow is shown in the vertebral arteries. Electronically signed by: Alejandro Dejesus M.D. 03/21/2017 7:23 PM Dictated Date/Time: 03/21/2017 7:21 PM The status of this report is Signed. Draft = Not yet reviewed or approved by Radiologist. Signed = Reviewed and approved by Radiologist. CT ANGIOGRAM OF THE BRAIN; CT ANGIOGRAM OF THE NECK CLINICAL HISTORY: Strokelike symptoms. Retinal occlusion. COMPARISON STUDY: Unenhanced CT of the brain dated 03/21/2017. TECHNIQUE: Following the IV administration of 120 of Optiray 320, CT angiogram of the head and neck was performed from the aortic arch to the vertex. Images are reviewed in the axial, sagittal, and coronal planes. 3-D MIPS images are created and assessed. IV contrast was administered without complication. All measurements were calculated based on NASCET criteria. A dose lowering technique was utilized adhering to the principles of ALARA. CT DOSE: 420.43 mGy.cm FINDINGS: Brain parenchyma: There are age-related involutional changes noting mild to moderate patchy subcortical and periventricular microangiopathic disease. There is no hemorrhage, mass effect, or evidence of acute territorial ischemia by CT criteria. There is no evidence of enhancing mass lesion on these angiographic phase images. The ventricles, sulci, and cisterns are prominent secondary to involutional change. Duarte-white matter differentiation is preserved. No extra-axial fluid collection is seen. Thoracic aorta: There is atherosclerotic calcification of the thoracic aorta. Visualized portions of the thoracic aorta are normal in caliber. The aortic arch demonstrates standard 3-vessel anatomy. Right carotid arterial system: The right common carotid artery is widely patent. There is advanced atherosclerotic calcification of the carotid bulb. This causes at least 50-75% stenosis at the origin of the right internal carotid artery. The remainder of the right internal carotid artery is widely patent, as is the right external carotid artery. Left carotid arterial system: The left common carotid artery is widely patent, as are the left internal and external carotid arteries. There is evidence carotid calcification of the carotid bulb which causes less than 25% luminal narrowing. Vertebral arteries: Widely patent bilaterally. The right vertebral artery is dominant. Subclavian arteries: Widely patent bilaterally. Intracranial vasculature: There is atherosclerotic calcification of the cavernous carotid and vertebral arteries. The internal carotid arteries are patent at the skull base, as are the anterior and middle cerebral arteries bilaterally. The vertebrobasilar system and posterior cerebral arteries are widely patent. The right vertebral artery is dominant. There is no aneurysm, high-grade stenosis, or focal vessel cut off seen throughout the intracranial circulation. Jugular veins: Widely patent bilaterally. Dural sinuses: Patent. Lung apices: Partially visualized upper lobe lung parenchyma appears clear. Soft tissues: The visualized pharyngeal soft tissues are normal in appearance noting angiographic phase technique. The oropharyngeal airway appears widely patent. The salivary and thyroid glands are normal in appearance. No cervical lymphadenopathy is seen. Skeletal structures: The skeletal structures are osteopenic. The calvarium appears intact. Multilevel cervical spondylosis is observed. Sinuses and mastoids: The paranasal sinuses are clear. The mastoid air cells are well pneumatized. Orbits: The bony orbits are intact. There are bilateral ocular lens implants. IMPRESSION: 1. There is no evidence of hemorrhage, mass effect, or acute territorial ischemia by CT criteria. 2. Unremarkable CT angiogram of the brain. 3. There is advanced and complex atherosclerotic plaque seen in the right carotid bulb. This causes 50-75% stenosis at the origin of the right internal carotid artery. 4. The remainder of the right internal carotid artery is widely patent. 5. No hemodynamically significant stenosis is seen in the left carotid arterial system. Electronically signed by: Alejandro Dejesus M.D. 03/21/2017 6:34 PM Dictated Date/Time: 03/21/2017 6:19 PM The status of this report is Signed. Draft = Not yet reviewed or approved by Radiologist. Signed = Reviewed and approved by Radiologist. [~ rep ct add3]] CT ANGIOGRAM OF THE BRAIN; CT ANGIOGRAM OF THE NECK CLINICAL HISTORY: Strokelike symptoms. Retinal occlusion. COMPARISON STUDY: Unenhanced CT of the brain dated 03/21/2017. TECHNIQUE: Following the IV administration of 120 of Optiray 320, CT angiogram of the head and neck was performed from the aortic arch to the vertex. Images are reviewed in the axial, sagittal, and coronal planes. 3-D MIPS images are created and assessed. IV contrast was administered without complication. All measurements were calculated based on NASCET criteria. A dose lowering technique was utilized adhering to the principles of ALARA. CT DOSE: 420.43 mGy.cm FINDINGS: Brain parenchyma: There are age-related involutional changes noting mild to moderate patchy subcortical and periventricular microangiopathic disease. There is no hemorrhage, mass effect, or evidence of acute territorial ischemia by CT criteria. There is no evidence of enhancing mass lesion on these angiographic phase images. The ventricles, sulci, and cisterns are prominent secondary to involutional change. Duarte-white matter differentiation is preserved. No extra-axial fluid collection is seen. Thoracic aorta: There is atherosclerotic calcification of the thoracic aorta. Visualized portions of the thoracic aorta are normal in caliber. The aortic arch demonstrates standard 3-vessel anatomy. Right carotid arterial system: The right common carotid artery is widely patent. There is advanced atherosclerotic calcification of the carotid bulb. This causes at least 50-75% stenosis at the origin of the right internal carotid artery. The remainder of the right internal carotid artery is widely patent, as is the right external carotid artery. Left carotid arterial system: The left common carotid artery is widely patent, as are the left internal and external carotid arteries. There is evidence carotid calcification of the carotid bulb which causes less than 25% luminal narrowing. Vertebral arteries: Widely patent bilaterally. The right vertebral artery is dominant. Subclavian arteries: Widely patent bilaterally. Intracranial vasculature: There is atherosclerotic calcification of the cavernous carotid and vertebral arteries. The internal carotid arteries are patent at the skull base, as are the anterior and middle cerebral arteries bilaterally. The vertebrobasilar system and posterior cerebral arteries are widely patent. The right vertebral artery is dominant. There is no aneurysm, high-grade stenosis, or focal vessel cut off seen throughout the intracranial circulation. Jugular veins: Widely patent bilaterally. Dural sinuses: Patent. Lung apices: Partially visualized upper lobe lung parenchyma appears clear. Soft tissues: The visualized pharyngeal soft tissues are normal in appearance noting angiographic phase technique. The oropharyngeal airway appears widely patent. The salivary and thyroid glands are normal in appearance. No cervical lymphadenopathy is seen. Skeletal structures: The skeletal structures are osteopenic. The calvarium appears intact. Multilevel cervical spondylosis is observed. Sinuses and mastoids: The paranasal sinuses are clear. The mastoid air cells are well pneumatized. Orbits: The bony orbits are intact. There are bilateral ocular lens implants. IMPRESSION: 1. There is no evidence of hemorrhage, mass effect, or acute territorial ischemia by CT criteria. 2. Unremarkable CT angiogram of the brain. 3. There is advanced and complex atherosclerotic plaque seen in the right carotid bulb. This causes 50-75% stenosis at the origin of the right internal carotid artery. 4. The remainder of the right internal carotid artery is widely patent. 5. No hemodynamically significant stenosis is seen in the left carotid arterial system. Electronically signed by: Alejandro Dejesus M.D. 03/21/2017 6:34 PM Dictated Date/Time: 03/21/2017 6:19 PM The status of this report is Signed. Draft = Not yet reviewed or approved by Radiologist. Signed = Reviewed and approved by Radiologist. <AttendingPhy></AttendingPhy> <FamilyPhy>Patricia KamONegrito</FamilyPhy> < PrimaryPhy>Patricia KamO.</PrimaryPhy> <UnitNumber>[id number]</ UnitNumber> <VisitNumber>[id number]</VisitNumber> <PatientName>ZACHARY CORDOVA</PatientName> <DateOfBirth>1930</DateOfBirth> <Location>[facility]</Location > <ServiceDate>03/21/17</ServiceDate> <MNE>ESINDI</MNE> <OrderingPhy>Efra Kohli MD</OrderingPhy> <OrderingPhyMNE>f rep ord dr lambert</OrderingPhyMNE> < DictatingPhyMNE>f rep dict dr lambert</DictatingPhyMNE> <CCListMNE>f rep ct joee</ CCListMNE> <AdmittingPhyMNE>f pt admit dr lambert</AdmittingPhyMNE> <AttendingPhyMNE >f pt attend dr lambert</ Consultations: Neurology (Efra Kohli MD) Medication Reconciliation New Medications: Aspirin (Aspirin) 81 Mg Chw 1 TAB PO DAILY for 90 Days, #90 TAB 3 Refills Atorvastatin (Lipitor) 40 Mg Tab 40 MG PO DAILY for 90 Days, #90 TAB Clopidogrel Bisulfate (Plavix) 75 Mg Tab 1 TAB PO DAILY for 90 Days, #90 TAB 1 Refill Continued Medications: Clonazepam (Klonopin) 0.5 Mg Tab 0.5 MG PO DAILY PRN for Anxiety, TAB Lisinopril (Zestril) 20 Mg Tab 20 MG PO DAILY, TAB Omeprazole (Prilosec) 20 Mg Capcr 20 MG PO BID, CAP Sertraline (Zoloft) 50 Mg Tab 50 MG PO DAILY, TAB Tramadol (Ultram) 50 Mg Tab 50 MG PO Q6H PRN for Pain, TAB Discharge Exam A 10 point review of systems was negative unless stated above. 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, alert, normal mood/affect , oriented x 3, + pertinent finding (right monocular hemianopia in the nasal field) Skin: normal color, warm/dry (Efra Kohli MD) Review of Systems: Constitutional: No fever Respiratory: No shortness of breath Cardiovascular: No chest pain Abdomen: No pain, No nausea, No vomiting Neurologic: No weakness, No numbness/tingling Physical Exam: General Appearance: no apparent distress Respiratory/Chest: lungs clear, no respiratory distress Cardiovascular: regular rate, rhythm Abdomen / GI: soft Neurologic/Psychiatric: alert, oriented x 3, + pertinent finding (impaired right eye visual field) Skin: warm/dry (Pinky Love M.D.) Hospital Course 87 year old female with sudden onset right hemianopia in the temporal retina. Saw impregnation operator morning of her admission who noted right central retinal artery occlusion and advised going to ED for evaluation. She does have other risk factors for ischemic vessel disease including HTN and HLD. Her hospital course was as follows: Right Central Artery Occlusion - With temporal retina visual field defect - CT brain negative - MRI brain negative for acute CVA - CTA Head and Neck with right internal carotid bulb 50-70% stenosis; no indication for vascular intervention at this time - Carotid US normal - Echocardiogram grossly normal - Secondary Prevention ASA 81 mg daily + Plavix 75 mg daily x 3 months, then will convert to Plavix monotherapy, per neurology recommendations Continue home Lisinopril 20 mg; Appreciate BP recommendations per neurology Atorvastatin 40 mg HbA1c < 6.5; no indication for diabetic management - Neurology consulted and recommendations appreciated Will arrange for 1 month follow-up - Ophthalmology can evaluate patient on outpatient basis; will help set up appointment Hypertension - BP normal in hospital - Recommend BP goals For the next 1 month blood pressure goal is 130/80 - 150/90 After this blood pressure goal is 110/70 - 130/80 Hyperlipidemia - Increase intensity to Atorvastatin 40 mg D/C home Simvastatin 20 mg Anxiety/Depression - Continue Fluoxetine - Continue Clonazepam DVT Prophylaxis - SCD Knee, TARA Hose - Lovenox 40 mg s.c. daily Code Status - Level I Full Code Disposition - Telemetry - PT and OT evaluations completed without concern for return home FOLLOW-UP - Patient advised to see PCP for follow-up in 1 week - We will help arrange for Neurology follow-up in 1 month - We will help arrange for Ophthalmology follow-up in 1 month Total Time Spent: Less than 30 minutes This includes examination of the patient, discharge planning, medication reconciliation, and communication with other providers. (Efra Kohli MD) Resident Physician Supervision Note: I was present with Dr. Kohli in bedside. I verified the crespo history and physical, reviewed labs and image studies, discussed the case with the resident and agree with the findings and care plan. Total Time Spent: Greater than 30 minutes (35) (Pinky Love M.D.) Discharge Instructions Please refer to the electronic Patient Visit Report (Discharge Instructions) for additional information. (Efra Kohli MD) Additional Copies To Patricia Kam D.O.
[2017-03-23] MEDS ORDERED: CLOPIDOGREL BISULFATE 75 MG TAB PO SCH (09:00)
== END 2017-03-22 19:45 | disposition home or self-care (01) | DRG 123 ==
LOC: C.EDB 14:21 → C.MED 17:35 → ENRESERV 18:30
PROVIDERS: ADMIT Student in an Organized Health Care Education/Training Program; ATTEND Hospitalist
DX: H34.11 Central retinal artery occlusion, right eye (principal); H53.47 Heteronymous bilateral field defects; I10 Essential (primary) hypertension; F32.9 Major depressive disorder, single episode, unspecified; F41.9 Anxiety disorder, unspecified; K21.9 Gastro-esophageal reflux disease without esophagitis; E78.5 Hyperlipidemia, unspecified; Z79.899 Other long term (current) drug therapy